=== PATIENT | female | born 1995 | race African-American/Black ===

== ENCOUNTER → 2016-09-18 | Outpatient (CLI) | payer OTHER ==
[2016-08-15 20:44] VITALS: BP 137/64
[~2016-09-18] MED LIST: HYDR-2666 PO; METR500T PO; ONDA4TAB10 SL
--- NOTE | 2016-09-18 16:58 | KCIC ---
Examination: Ultrasound pelvis. HISTORY History of pelvic pain. TECHNIQUE Transabdominal, transvaginal examination of the pelvis performed Findings: The uterus measures 7.9 x 3.5 x 6.6 centimeters. A small amount of fluid identified in the cul-de-sac. A small amount of fluid identified within the endometrium. The endometrium measures 9.7 millimeters in transverse dimension. The right ovary measures 3.0 x 2.6 x 2.3 centimeters. The left ovary measures 2.9 x 1.5 x 2.1 centimeters. Blood flow identified in the right and left ovaries. IMPRESSION 1. Small amount of fluid identified in the endometrium, nonspecific. 2. Small amount of fluid identified in the cul-de-sac. Electronically signed by: García Lloyd (Sep 18, 2016 16:56:47)
== END | disposition home or self-care (01) ==
LOC: KCIC US 15:05
PROVIDERS: ATTEND Family Medicine
DX: R10.2 Pelvic and perineal pain (principal)
CPT/HCPCS: 76830; 76856

== ENCOUNTER → 2017-01-05 | Outpatient (CLI) | payer OTHER ==
[2016-08-15 20:44] VITALS: BP 137/64
--- NOTE | 2017-01-05 15:00 | RAD ---
OB ultrasound History: Anatomic survey. Comparison: None. Findings: Examination is slightly difficult secondary to patient body habitus. There is a single intrauterine gestation in cephalic presentation. The placenta is anterior in location without gross evidence of placenta previa. Amniotic fluid index is 8.8 centimeters, borderline low. Cervix is not well seen. Biometric data is as follows: BPD = 4.34 for 19 weeks 1 days. HC = 16.94 cm for 19 weeks 4 days. AC = 13.64 cm for 19 weeks 1 days. FL = 2.86 cm for 18 weeks 5 days. HC/AC ratio = 1.24, within normal limits. Overall, the average ultrasound age age is 19 weeks 1 day for an estimated date of delivery of 05/31/2017. The estimated date of delivery provided by the last menstrual period is 06/06/2017. Estimated weight is 269 +/- 40 grams. gender appears female. Optimal four-chamber view of the heart was not obtained. The estimated heart rate is 150 beats per minute. Bilateral upper and lower extremities are identified. There is a three-vessel cord with cord insertion visualized. stomach and urinary bladder are identified. Kidneys are not well visualized. The spine and brain are unremarkable. Impression: 1. Limited examination. 2. Single live intrauterine gestation with average ultrasound age of 19 weeks 1 day. 3. Borderline oligohydramnios. Amniotic fluid index is 8.8 cm. 4. Limited visualization and evaluation of the heart. Limited visualization of the kidneys.
== END | disposition home or self-care (01) ==
LOC: US 11:40
PROVIDERS: ATTEND Obstetrics & Gynecology
DX: O09.92 Supervision of high risk pregnancy, unspecified, second trimester (principal); O26.842 Uterine size-date discrepancy, second trimester; Z3A.19 19 weeks gestation of pregnancy
CPT/HCPCS: 76805

== ENCOUNTER → 2017-04-21 | Outpatient (CLI) | payer OTHER ==
[2016-08-15 20:44] VITALS: BP 137/64
[~2017-04-21] MED LIST changes: -HYDR-2666 PO; +HYDR-2758 PO
--- NOTE | 2017-04-21 13:23 | KCIC ---
Indication: Screening Technique:Transabdominal imaging was performed. Comparison: None Findings: There is a single intrauterine gestation in cephalic presentation. The placenta is anterior in location without evidence of placental previa. [place] measured 13.6. This value is within normal limits. Biometrical data is as follows: BPD = 8.4 cm, with a corresponding gestational age of 34 weeks 0 days. HC = 30.2 cm, with a corresponding gestational age of 33 weeks 4 days. AC = 29.5 cm, with a corresponding gestational age of 33 weeks 3 days. FL = 6.5 cm, with a corresponding gestational age of 33 weeks 4 days. Ratio of head circumference to abdominal circumference is 1.02. Overall, the estimated sonographic gestational age is 33 weeks 5 days for an estimated date of delivery of 06/04/2017. Estimated weight is 221 7 g. survey was performed. A four chamber heart is identified with positive cardiac activity. The estimated heart rate is 140 beats per minute. There is a three-vessel cord with central cord insertion. stomach and urinary bladder are identified. Both kidneys are seen. IMPRESSION: Single intrauterine gestation with estimated sonographic gestational age of 33 weeks 5 days with estimated date of delivery 06/04/2017. Electronically signed by: Angelo Wesley MD (04/21/2017 1:20 PM) [place] [id number]
== END | disposition home or self-care (01) ==
LOC: KCIC US 12:09
PROVIDERS: ATTEND Obstetrics & Gynecology
DX: O26.843 Uterine size-date discrepancy, third trimester (principal); Z3A.33 33 weeks gestation of pregnancy
CPT/HCPCS: 76805

== ENCOUNTER 2017-08-04 06:28 | Observation (INO) | payer OTHER ==
[2017-08-04] VITALS (8 sets, daily range): BP systolic 68–136; BP diastolic 60–76
[~2017-08-04] VITALS: Ht 154.9 cm; Wt 97.5 kg
[2017-08-04] MEDS ORDERED: HYDROmorphone 2 MG/ML VIAL IV PRN (07:00)
[2017-08-04] MEDS ORDERED: fentaNYL PF VIAL 100 MCG/2 ML VIAL IV PRN (07:00)
[2017-08-04] MEDS ORDERED: IV RINGERS,LACTATED 1000ML 1,000 ML IV SCH (07:00)
[2017-08-04] MEDS ORDERED: LIDOCAINE 1% PF 2 ML VIAL. ID PRN (07:00)
[2017-08-04] MEDS ORDERED: ONDANSETRON PF 4 MG/2 ML VIAL. IV PRN (07:00)
[2017-08-04] MEDS ORDERED: PROCHLORPERAZINE 10 MG/2 ML VIAL. IV PRN (07:00)
[2017-08-04] MEDS ORDERED: BUPIVACAINE-EPI 0.25%-1:200000 50 ML VIAL. ONE (07:18)
[2017-08-04] MEDS ORDERED: SEVOFLURANE 61 TO 120 MINUTES. IH ONE (07:30)
[2017-08-04] MEDS ORDERED: NEOSTIGMINE 10 MG/10 ML VIAL. ONE (07:31)
[2017-08-04] MEDS ORDERED: ROCURONIUM 50 MG/5 ML VIAL. ONE (07:31)
[2017-08-04] MEDS ORDERED: MIDAZOLAM HCL/PF 2 MG/2 ML VIAL. ONE (07:31)
[2017-08-04] MEDS ORDERED: LIDOCAINE 2% PF Vial for OR 5 ML VIAL. ONE (07:31)
[2017-08-04] MEDS ORDERED: ONDANSETRON PF 4 MG/2 ML VIAL. ONE (07:31)
[2017-08-04] MEDS ORDERED: PROPOFOL 20 ML IV ONE (07:31)
[2017-08-04] MEDS ORDERED: fentaNYL PF VIAL 100 MCG/2 ML VIAL ONE ×2 (07:31→08:22)
[2017-08-04] MEDS ORDERED: GLYCOPYRROLATE 1 MG/5 ML VIAL. ONE (07:31)
[2017-08-04] MEDS ORDERED: DEXAMETHASONE SOD PHOS 20 MG/5 ML VIAL. ONE (07:31)
[2017-08-04 07:51] LABS: NEG OBC UR NEG; POS OBC UR POS
[2017-08-04] MEDS ORDERED: [UNRECOGNIZED DRUG - OTHER] INJ ONE (08:16)
[2017-08-04] MEDS ORDERED: KETOROLAC 30 MG/ML INJ FOR OR. INJ ONE (08:21)
--- NOTE | 2017-08-04 08:29 | PDOC ---
BRIEF OPERATIVE NOTE Date: Aug 04, 2017 Pre-Op Diagnosis Sterilization Post-Op Diagnosis SAme Procedure Performed [facility] BTL Surgeon Dr. Reynolds Anesthesia Type: General Blood Loss less than 5 ml Specimens Obtained none Findings nml size uterus with adhesions to abd wall, nml fallopian tubes and ovaries bertrand. Complications none Operative Note see dictation FALGUNI REYNOLDS Jr, MD Aug 04, 2017 08:29
--- NOTE | 2017-08-04 08:30 | DISCH ---
DISCHARGE INSTRUCTIONS Condition on Discharge Condition on Discharge: Stable Activity After Discharge Activity Instructions for Disc: Activity as tolerated Lifting Instructions after Dis: No heavy lifting Driving Instructions after Dis: Do not drive today Diet after Discharge Diet after Discharge: Regular Contacting the DRChaz after DC Call your doctor for: Concerns you may have Follow-Up Follow up with: Dr. Reynolds in 1 week. FALGUNI REYNOLDS Jr, MD Aug 04, 2017 08:30
[2017-08-04] MEDS: fentaNYL PF VIAL 100 MCG/2 ML VIAL IV PRN ×4 (08:35→09:20)
[2017-08-04] MEDS ORDERED: MORPHINE SULFATE 2 MG/ML DISP.SYRIN. ONE (08:36)
[2017-08-04] MEDS: MORPHINE SULFATE 2 MG/ML DISP.SYRIN. IV PRN ×2 (08:40→08:50)
--- NOTE | 2017-08-04 08:53 | OP ---
DATE OF SURGERY: 08/04/2017 PREOPERATIVE DIAGNOSIS: Sterilization. POSTOPERATIVE DIAGNOSIS: Sterilization. PROCEDURE: Laparoscopic BTL with Filshie clips. SURGEON: Tarik Reynolds MD. ANESTHESIA: GETA. ESTIMATED BLOOD LOSS: Less than 5 mL. COMPLICATIONS: None. FINDINGS: Normal size uterus with adhesions to the abdominal wall, normal fallopian tubes and ovaries bilaterally. SUMMARY: A 22-year-old who desires permanent sterilization. She was counseled on risks, benefits and expectations as well as the failure rate and desires to proceed. DESCRIPTION OF PROCEDURE: The patient was taken to surgery suite and placed in dorsal lithotomy position. She was prepped with ChloraPrep for abdominal prep and Betadine solution for vaginal prep. After adequate anesthesia, bivalve speculum was placed vaginally. Anterior lip of the cervix grasped with a single tooth tenaculum. Uterine acorn manipulator was then placed. The bivalve speculum was removed. Attention was now placed on abdomen. Small transverse skin incision made just below the umbilicus with scalpel. The Veress needle was then placed through the infraumbilical incision site. The abdomen was allowed to insufflate up to 1-1/2 liters of CO2 gas. A 5 mm trocar was placed. The scope was positioned. The uterus was normal size with adhesions to the abdominal wall. Fallopian tubes and ovaries appeared normal bilaterally. A second incision was made in the left lower quadrant with a scalpel, in which 8 mm trocar was placed. The Filshie clip applicator was then placed. The left fallopian tube was totally occluded with Filshie clips. Same process took place at the right adnexa. The trocars were then removed under direct visualization. Abdomen was allowed to deflate as much as possible along with mechanical manipulation. The two skin incisions were reapproximated using 4-0 Vicryl suture in subcuticular manner. 0.25% Marcaine with epinephrine was injected at each incision site. The uterine acorn manipulator and single tooth tenaculum were removed. The patient tolerated the procedure well and was taken to recovery room in stable condition. Sponge and needle count correct x 3. TARIK REYNOLDS MD DR: ASHLEE/gail JOB#: [id number] / [id number]
[2017-08-04] MEDS ORDERED: OXYC-323 PO (09:00)
[2017-08-04] MEDS ORDERED: oxyCODONE/APAP 5/325 1 TAB TABLET ONE (09:05)
[2017-08-04] MEDS ORDERED: oxyCODONE/APAP 5/325 1 TAB TABLET PO ONE (09:15)
[2017-08-04] MEDS ORDERED: oxyCODONE/APAP 5/325 1 TAB TABLET PO PRN (10:30)
[2017-08-04] MEDS ORDERED: ONDANSETRON ODT 4 MG TAB.RAPDIS. PO PRN (10:30)
[2017-08-04] MEDS: oxyCODONE/APAP 5/325 1 TAB TABLET PO PRN ×2 (15:50→18:46)
[2017-08-04 15:58] LABS: HEMATOCRIT 34.4 % (36.0-47.0); HEMOGLOBIN 10.7 g/dL (12.0-15.5)
[2017-08-05 03:00] VITALS: BP 130/62
[2017-08-05 08:06] VITALS: BP 125/64
[2017-08-05] MEDS ORDERED: OXYC-323 PO (11:08)
[2017-08-05] MEDS: oxyCODONE/APAP 5/325 1 TAB TABLET PO PRN (11:31)
[2017-08-05 11:43] VITALS: BP 126/68
== END 2017-08-05 14:19 | disposition home or self-care (01) ==
LOC: SURG 06:28 → 3 NORTH 10:30
PROVIDERS: ADMIT Obstetrics & Gynecology; ATTEND Obstetrics & Gynecology
DX: Z30.2 Encounter for sterilization (principal); K66.0 Peritoneal adhesions (postprocedural) (postinfection); Z80.3 Family history of malignant neoplasm of breast
CPT/HCPCS: 36415; 58671; 81025; 85014; 85018; A4215; G0378; G0379; J1100; J1885; J2250; J2405; J2704; J2710; J3010; J3490; J7120; Q0162; J2001

== ENCOUNTER 2018-05-03 13:52 | Emergency (ER) | payer SELFPAY ==
[~2018-05-03] VITALS: Ht 154.9 cm; Wt 95.3 kg
[~2018-05-03 13:52] MED LIST changes: +OXYC-323 PO
[2018-05-03 14:04] VITALS: BP 125/76
[2018-05-03] MEDS ORDERED: AMOX500C PO (14:19)
[2018-05-03] MEDS ORDERED: HYDR-971 PO (14:19)
--- NOTE | 2018-05-03 14:21 | PHYS DOC ---
Past Medical History Past Medical History: No Pertinent History, Asthma Past Surgical History: , Tonsillectomy Alcohol Use: Occasionally Drug Use: Marijuana Adult General Chief Complaint Chief Complaint: DENTAL PROBLEM HPI HPI Patient is a 23 year old [f__sex] who presents with [] Review of Systems Review of Systems Constitutional: Denies fever or chills [] Eyes: Denies change in visual acuity, redness, or eye pain [] HENT: Denies nasal congestion or sore throat [] Respiratory: Denies cough or shortness of breath [] Cardiovascular: No additional information not addressed in HPI [] GI: Denies abdominal pain, nausea, vomiting, bloody stools or diarrhea [] : Denies dysuria or hematuria [] Musculoskeletal: Denies back pain or joint pain [] Integument: Denies rash or skin lesions [] Neurologic: Denies headache, focal weakness or sensory changes [] Endocrine: Denies polyuria or polydipsia [] All other systems were reviewed and found to be within normal limits, except as documented in this note. Allergies Allergies Allergies Coded Allergies Type Severity Reaction Last Updated Verified Penicillins Allergy Severe Anaphylaxis 08/04/17 No Physical Exam Physical Exam Constitutional: Well developed, well nourished, no acute distress, non-toxic appearance. [] HENT: Normocephalic, atraumatic, bilateral external ears normal, oropharynx moist, no oral exudates, nose normal. [] Eyes: PERRLA, EOMI, conjunctiva normal, no discharge. [] Neck: Normal range of motion, no tenderness, supple, no stridor. [] Cardiovascular:Heart rate regular rhythm, no murmur [] Lungs & Thorax: Bilateral breath sounds clear to auscultation [] Abdomen: Bowel sounds normal, soft, no tenderness, no masses, no pulsatile masses. [] Skin: Warm, dry, no erythema, no rash. [] Back: No tenderness, no CVA tenderness. [] Extremities: No tenderness, no cyanosis, no clubbing, ROM intact, no edema. [] Neurologic: Alert and oriented X 3, normal motor function, normal sensory function, no focal deficits noted. [] Psychologic: Affect normal, judgement normal, mood normal. [] Current Patient Data Vital Signs Vital Signs Date Time Temp Pulse Resp B/P (MAP) Pulse Ox O2 Delivery O2 Flow Rate FiO2 8/21/18 14:04 98.5 76 18 125/76 (92) 99 Room Air 98.5 EKG EKG [] Radiology/Procedures Radiology/Procedures [] Course & Med Decision Making Course & Med Decision Making Pertinent Labs and Imaging studies reviewed. (See chart for details) [] Dragon Disclaimer Dragon Disclaimer This electronic medical record was generated, in whole or in part, using a voice recognition dictation system. Departure Departure Impression: Primary Impression: Pain, dental Disposition: HOME, SELF-CARE Condition: STABLE Referrals: AIDA GOINS MD (PCP) Patient Instructions: Dental Caries-Brief, Dental Pain Additional Instructions: Take the medication as directed. Do not drive or operate heavy machinery while taking pain medication. Follow-up with a dentist at an earliest available appointment for treatment of your bad tooth. Return to the emergency department if worsening. Scripts Hydrocodone/Apap 5-325 (NORCO 5-325 TABLET) 1 Each Tablet 1 TAB PO PRN Q6HRS PRN for PAIN, #10 TAB 0 Refills Prov: ALEXX SHARMA APRN 05/03/18 Amoxicillin (AMOXICILLIN) 500 Mg Capsule 2 CAP PO BID, #40 CAP Prov: ALEXX SHARMA APRN 05/03/18 ALEXX SHARMA APRN May 03, 2018 14:20
== END 2018-05-03 14:25 | disposition home or self-care (01) ==
LOC: ER 13:52
DX: K08.89 Other specified disorders of teeth and supporting structures (principal); J45.909 Unspecified asthma, uncomplicated; Z88.0 Allergy status to penicillin
CPT/HCPCS: 99283

== ENCOUNTER 2018-08-02 12:44 | Emergency (ER) | payer SELFPAY ==
[~2018-08-02] VITALS: Ht 154.9 cm; Wt 95.3 kg
[~2018-08-02 12:44] MED LIST changes: +AMOX500C PO; +HYDR-3164 PO
[2018-08-02 13:28] VITALS: BP 168/87
[2018-08-02 13:49] LABS: BILIRUBIN,URINE NEGATIVE (NEG); CLARITY,URINE CLEAR; COLOR,URINE YELLOW; NITRITE,URINE NEGATIVE (NEG); PH,URINE 6.5; PROTEIN,URINE NEGATIVE (NEG-TRACE)
--- NOTE | 2018-08-02 13:58 | PHYS DOC ---
Past Medical History Past Medical History: Asthma Past Surgical History: , Tonsillectomy Alcohol Use: Occasionally Drug Use: Marijuana Adult General Chief Complaint Chief Complaint: VAGINAL PROBLEM HPI HPI Patient is a 23-year-old female presents to the emergency department for evaluation. She states that she has had a few days of vaginal itching, along with some whitish vaginal discharge. She states that she has had yeast infections in the past but this feels somewhat different. She has not had any pain, including any pelvic pain, urinary frequency, or dysuria. She does admit to having had a new sexual partner a couple weeks ago. She has not had any nausea, vomiting, fevers or chills. There are no alleviating or exacerbating factors to her symptoms. The patient states that she just began her menstrual cycle a few days ago, but has not had any bleeding today. Review of Systems Review of Systems Constitutional: Denies fever or chills [] HENT: Denies nasal congestion or sore throat [] Respiratory: Denies cough or shortness of breath [] GI: Denies abdominal pain, nausea, vomiting, bloody stools or diarrhea [] : Denies dysuria or hematuria [] Musculoskeletal: Denies back pain or joint pain [] Integument: Denies rash or skin lesions [] Neurologic: Denies headache, focal weakness or sensory changes [] Endocrine: Denies polyuria or polydipsia [] Current Medications Current Medications Current Medications Medications (Trade) Dose Ordered Sig/John Start Time Stop Time Status Last Admin Dose Admin Azithromycin (Zithromax) 1,000 mg 1X ONCE 08/02/18 15:00 08/02/18 15:01 UNV Ceftriaxone Sodium (Rocephin Im) 250 mg 1X ONCE 08/02/18 15:00 08/02/18 15:01 UNV Allergies Allergies Allergies Coded Allergies Type Severity Reaction Last Updated Verified Penicillins Allergy Severe Anaphylaxis 08/04/17 No Physical Exam Physical Exam PHYSICAL EXAM: CONSTITUTIONAL: Well developed, well nourished HEAD: normocephalic, atraumatic EENT: PERRL, EOMI. Conjunctivae normal color, sclerae non-icteric; moist mucous membranes. NECK: Supple, non-tender; no meningismus. LUNGS: Lungs CTA, breathing even and unlabored. Normal air movement. HEART: Regular rate and rhythm, no murmur CHEST: No deformity; non-tender ABDOMEN: The abdomen is soft, and non-tender, no masses or bruits. EXTREM: Normal ROM; no deformity, no calf tenderness. Normal pulses palpable in all extremities. There is no pedal edema. SKIN: No rash; no diaphoresis NEURO: Alert; normal speech and cognition; CN's grossly intact; strength grossly intact without focal deficit. BACK: No CVA TTP. GENITOURINARY: Normal external genitalia. There are no skin lesions noted. There is a small amount of thin, clear vaginal discharge, the cervix otherwise appears normal, there is no cervical motion tenderness. Exam was performed in the presence of the patient's nurse, Micheline. Current Patient Data Vital Signs Vital Signs Date Time Temp Pulse Resp B/P (MAP) Pulse Ox O2 Delivery O2 Flow Rate FiO2 08/02/18 13:28 98.5 79 16 168/87 (114) 99 Room Air 98.5 Lab Values Laboratory Tests Test 08/02/18 13:27 08/02/18 13:35 POC Urine HCG, Qualitative Hcg negative (Negative) Urine Collection Type Unknown Urine Color Yellow Urine Clarity Clear Urine pH 6.5 Urine Specific [place] 1.010 Urine Protein Negative mg/dL (NEG-TRACE) Urine Glucose (UA) Negative mg/dL (NEG) Urine Ketones (Stick) Negative mg/dL (NEG) Urine Blood Small (NEG) Urine Nitrite Negative (NEG) Urine Bilirubin Negative (NEG) Urine Urobilinogen Dipstick 1.0 mg/dL (0.2 mg/dL) Urine Leukocyte Esterase Small (NEG) Urine RBC Occ /HPF (0-2) Urine WBC 1-4 /HPF (0-4) Urine Squamous Epithelial Cells Few /LPF Urine Bacteria Few /HPF (0-FEW) Urine Mucus Slight /LPF Microbiology 08/02/18 Wet Prep - Final, Complete WET PREP Final YEAST NONE SEEN TRICHOMONAS PRESENT CLUE CELLS CLUE CELLS PRESENT ALTERED MANISHA ALTERED MANISHA PRESENT SUGGESTIVE OF BACTERIAL VAGINOSIS WBCS MANY SQUAMOUS EPS MANY EKG EKG [] Radiology/Procedures Radiology/Procedures [] Course & Med Decision Making Course & Med Decision Making Pertinent Lab studies reviewed. (See chart for details) [3:00 PM:Patient remains stable. I discussed test results, the need for close follow-up, safe sex, and and return precautions.] Dragon Disclaimer Dragon Disclaimer This electronic medical record was generated, in whole or in part, using a voice recognition dictation system. Departure Departure Impression: Primary Impression: Trichomonas vaginitis Additional Impression: BV (bacterial vaginosis) Disposition: HOME, SELF-CARE Condition: STABLE Referrals: AIDA GOINS MD (PCP) Patient Instructions: Bacterial Vaginosis, Safe Sex, Trichomoniasis Scripts Metronidazole (FLAGYL) 500 Mg Tablet 1 TAB PO BID, #14 TAB Prov: KRISTEN CALLAWAY MD 08/02/18 Problem Qualifiers KRISTEN CALLAWAY MD Aug 02, 2018 13:58
[2018-08-02 14:33] LABS: BACTERIA,URINE FEW /HPF (0-FEW); RBC,URINE OCC /HPF (0-2); SQUAMOUS EPITHELIAL CELL,UR FEW /LPF
[2018-08-02] MEDS ORDERED: AZITHROMYCIN 250 MG TABLET. PO ONE (15:00)
[2018-08-02] MEDS ORDERED: cefTRIAXone IM 250 MG VIAL IM ONE (15:00)
[2018-08-02] MEDS ORDERED: METR500T PO (15:03)
[2018-08-03 14:26] LABS: GC PROBE Negative (Negative)
== END 2018-08-02 15:23 | disposition home or self-care (01) ==
LOC: ER 12:44
DX: A59.01 Trichomonal vulvovaginitis (principal); J45.909 Unspecified asthma, uncomplicated; Z90.89 Acquired absence of other organs; Z98.890 Other specified postprocedural states; Z88.0 Allergy status to penicillin
CPT/HCPCS: 81001; 81025; 87086; 87491; 87591; 96372; 99283; J0696; Q0111; Q0144

== ENCOUNTER 2021-02-05 09:39 | Emergency (ER) | payer SELFPAY ==
[~2021-02-05] VITALS: Ht 154.9 cm; Wt 90.9 kg
[~2021-02-05 09:39] MED LIST changes: -HYDR-2758 PO; +HYDR-2761 PO; -OXYC-323 PO; +OXYC1TAB15 PO
[2021-02-05 10:08] VITALS: BP 149/101
[2021-02-05] MEDS ORDERED: DOXY100C2 PO (10:31)
--- NOTE | 2021-02-05 10:32 | PHYS DOC ---
Past Medical History Past Medical History: No Pertinent History, Asthma (JAMIR YIN APRN) Past Surgical History: , Tonsillectomy (JAMIR YIN APRN) Smoking Status: Current Every Day Smoker Alcohol Use: Occasionally Drug Use: Marijuana (JAMIR YIN APRN) General Adult EDM: Chief Complaint: SEXUALLY TRANSMITTED DISEASE HPI: HPI: Patient is a 25 year old female who presents with states that her ex-boyfriend called her and stated that he had to be treated for sexually transmitted disease. She states she does not know what he had to be treated for. She states that she has a normal vaginal discharge for her. She has no vaginal itching, urinary symptoms, abdominal pain, fever, nausea, back pain. (JAMIR YIN APRN) Review of Systems: Review of Systems: Constitutional: Denies fever or chills. [] Eyes: Denies change in visual acuity. [] HENT: Denies nasal congestion or sore throat. [] Respiratory: Denies cough or shortness of breath. [] Cardiovascular: Denies chest pain or edema. [] GI: Denies abdominal pain, nausea, vomiting, bloody stools or diarrhea. [] : Denies dysuria. + Exposure to STD [] Musculoskeletal: Denies back pain or joint pain. [] Integument: Denies rash. [] Neurologic: Denies headache, focal weakness or sensory changes. [] Endocrine: Denies polyuria or polydipsia. [] Lymphatic: Denies swollen glands. [] Psychiatric: Denies depression or anxiety. [] (JAMIR YIN APRN) Heart Score: C/O Chest Pain: No Risk Factors: Risk Factors: DM, Current or recent (<one month) smoker, HTN, HLP, family history of CAD, obesity. Risk Scores: Score 0 - 3: 2.5% MACE over next 6 weeks - Discharge Home Score 4 - 6: 20.3% MACE over next 6 weeks - Admit for Clinical Observation Score 7 - 10: 72.7% MACE over next 6 weeks - Early Invasive Strategies (JAMIR YIN APRN) Allergies: Allergies: Allergies Coded Allergies Type Severity Reaction Last Updated Verified Penicillins Allergy Severe Anaphylaxis 08/04/17 No (JAMIR YIN APRN) Physical Exam: PE: Constitutional: Well developed, well nourished, no acute distress, non-toxic appearance. [] HENT: Normocephalic, atraumatic, bilateral external ears normal, oropharynx moist, no oral exudates, nose normal. [] Eyes: PERRLA, EOMI, conjunctiva normal, no discharge. [] Neck: Normal range of motion, no tenderness, supple, no stridor. [] Cardiovascular:Heart rate regular rhythm, no murmur [] Lungs & Thorax: Bilateral breath sounds clear to auscultation [] Abdomen: Bowel sounds normal, soft, no tenderness, no masses, no pulsatile masses. [] Skin: Warm, dry, no erythema, no rash. [] Back: No tenderness, no CVA tenderness. [] Extremities: No tenderness, no cyanosis, no clubbing, ROM intact, no edema. [] Neurologic: Alert and oriented X 3, normal motor function, normal sensory function, no focal deficits noted. [] Psychologic: Affect normal, judgement normal, mood normal. Normal physical exam [] (JAMIR YIN APRN) Current Patient Data: Labs: Laboratory Tests Test 02/05/21 10:07 POC Urine HCG, Qualitative Hcg negative (Negative) Vital Signs: Vital Signs Date Time Temp Pulse Resp B/P (MAP) Pulse Ox O2 Delivery O2 Flow Rate FiO2 02/05/21 10:08 98.2 69 20 149/101 (117) 98 Room Air 98.2 (JAMIR YIN APRN) EKG: EKG: [] (JAMIR YIN APRN) Radiology/Procedures: Radiology/Procedures: [] (JAMIR YIN APRN) Course & Med Decision Making: Course & Med Decision Making Pertinent Labs and Imaging studies reviewed. (See chart for details) See HPI. Alert and oriented x4. Ambulatory with steady gait. Skin pink warm and dry. Afebrile. Abdomen is soft and nontender. Pelvic Exam: Senior Net Software Developer present Abdomen: Nontender External Genitalia: Normal Skin Speculum: Normal vaginal mucosa, normal cervical discharge Bimanual: No adnexal masses or tenderness, No CMT Discharge paperwork is on paper due to downtime. [] (JAMIR YIN APRN) Dragon Disclaimer: Dragon Disclaimer: This electronic medical record was generated, in whole or in part, using a voice recognition dictation system. (JAMIR YIN APRN) Departure Departure Impression: Primary Impression: Concern about STD in female without diagnosis Disposition: HOME / SELF CARE / HOMELESS Condition: STABLE Referrals: AIDA GOINS MD (PCP) Patient Instructions: Sexually Transmitted Diseases (STD) In Additional Instructions: Follow-up with primary care provider or with electrifier operator if needed. Take medication as prescribed and with food. Remember your results will be called to you in 48 hours only if they are positive. Scripts Doxycycline Hyclate (DOXYCYCLINE HYCLATE) 100 Mg Capsule 1 CAP PO BID, #14 CAP Prov: JAMIR YIN APRN 02/05/21 Attending Signature I have participated in the care of this patient and I have reviewed and agree with all pertinent clinical information above including history, exam, and recommendations. (DEBORAH CRUMP DO) JAMIR YIN APRN February 05, 2021 10:32 DEBORAH CRUMP DO February 05, 2021 12:06
[2021-02-05] MEDS ORDERED: AZITHROMYCIN 250 MG TABLET. PO ONE (10:45)
[2021-02-05] MEDS ORDERED: cefTRIAXone IM 500 MG VIAL. IM ONE (10:45)
[2021-02-05] MEDS ORDERED: ONDANSETRON ODT 4 MG TAB.RAPDIS. PO ONE (10:45)
[2021-02-05 12:00] LABS: BILIRUBIN,URINE NEGATIVE (NEG); CLARITY,URINE CLEAR; COLOR,URINE YELLOW; NITRITE,URINE NEGATIVE (NEG); PROTEIN,URINE NEGATIVE (NEG-TRACE)
[2021-02-05 12:01] LABS: BACTERIA,URINE FEW /HPF (0-FEW); RBC,URINE 0 /HPF (0-2); WBC,URINE OCC /HPF (0-4)
[2021-02-06 17:27] LABS: GC PROBE Negative (Negative)
== END 2021-02-05 11:29 | disposition home or self-care (01) ==
LOC: ER 09:39
DX: Z20.2 Contact with and (suspected) exposure to infections with a predominantly sexual mode of transmission (principal); J45.909 Unspecified asthma, uncomplicated; F17.200 Nicotine dependence, unspecified, uncomplicated; Z88.0 Allergy status to penicillin
CPT/HCPCS: 81001; 81025; 87491; 87591; 99284; Q0111